=== PATIENT | female | born 2000 | race Caucasian/White ===

== ENCOUNTER → 2023-06-25 13:41 | Outpatient (REF) | payer BC, SELFPAY ==
[2023-06-25 14:57] LABS: % Basophils 0.6 % (0-2); % Eosinophils 1.5 % (0-6); % Immature Granulocytes 0.3 % (0-0.5); % Lymphocytes 41.3 % (20.5-51.1); % Monocytes 6.2 % (1.7-9.3); % Neutrophils 50.1 % (42.2-75.2); Absolute Eosinophils 0.1 10^3/uL (0-0.7); Absolute Lymphocytes 2.7 10^3/uL (1.2-3.4); Absolute Monocytes 0.4 10^3/uL (0.1-0.6); Absolute Neutrophils 3.2 10^3/uL (1.4-6.5); Hematocrit 39.2 % (37.0-47.0); Hemoglobin 13.8 g/dL (12.0-16.0); Mean Corp Hgb Conc. 35.2 g/dL (33.0-37.0); Mean Corpuscular Hgb 29.5 pg (27.0-31.0); Mean Corpuscular Volume 83.8 fL (81.0-99.0); Nucleated Red Blood Cells % 0 %; Platelet Count 426 10^3/uL (130-400); Red Blood Cell Count 4.68 10^6/uL (4.20-5.40); Red Cell Dist. Width 14.3 % (11.5-14.5); White Blood Cell Count 6.5 10^3/uL (4.8-10.8)
[2023-06-25 15:09] LABS: ALT (SGPT) 14 U/L (0-35); AST (SGOT) 27 U/L (14-36); Albumin 4.4 g/dl (3.5-5.0); Alkaline Phosphatase 49 U/L (38-126); Total Bilirubin 0.7 mg/dl (0.2-1.3); Total Protein 8.1 g/dl (6.3-8.2)
== END ==
LOC: REG 13:41
PROVIDERS: ATTENDING PHYSICIAN Internal Medicine Gastroenterology; FAMILY PHYSICIAN Internal Medicine
DX: K50.018 Crohn's disease of small intestine with other complication (principal)
CPT/HCPCS: 36415; 80076; 85025

== ENCOUNTER → 2023-06-29 16:04 | Outpatient (REF) | payer BC, SELFPAY ==
[2023-07-02 18:05] LABS: Calprotectin, Fecal 199 ug/g (<=49)
== END ==
LOC: REG 16:04
PROVIDERS: ATTENDING PHYSICIAN Physician Assistant
DX: K50.018 Crohn's disease of small intestine with other complication (principal)
CPT/HCPCS: 83993

== ENCOUNTER → 2023-10-06 11:16 | Outpatient (REF) | payer BC, SELFPAY | LOC: MRI 3T 11:16 | PROVIDERS: ATTENDING PHYSICIAN Internal Medicine Gastroenterology; FAMILY PHYSICIAN Internal Medicine | DX: K50.018 Crohn's disease of small intestine with other complication (principal) | CPT/HCPCS: 72197; 74183; A9575 ==

== ENCOUNTER → 2023-11-09 06:42 | Day surgery (SDC) | payer BC, SELFPAY | LOC: GI 06:42 | PROVIDERS: ATTENDING PHYSICIAN Internal Medicine Gastroenterology | DX: K50.00 Crohn's disease of small intestine without complications (principal); K64.9 Unspecified hemorrhoids | CPT/HCPCS: 45380; 88305 ==

== ENCOUNTER → 2024-05-23 08:22 | Outpatient (REF) | payer BC, SELFPAY ==
[2024-05-23 09:16] LABS: Hematocrit 36.3 % (37.0-47.0); Hemoglobin 12.7 g/dL (12.0-16.0); Mean Corpuscular Hgb 31.6 pg (27.0-31.0); Mean Corpuscular Volume 90.3 fL (81.0-99.0); Mean Platelet Volume 9.2 fL (7.4-10.4); Platelet Count 286 10^3/uL (130-400); Red Blood Cell Count 4.02 10^6/uL (4.20-5.40); Red Cell Dist. Width 12.2 % (11.5-14.5); White Blood Cell Count 5.6 10^3/uL (4.8-10.8)
[2024-05-23 09:56] LABS: ALT (SGPT) 13 U/L (0-35); AST (SGOT) 20 U/L (14-36); Albumin 4.2 g/dl (3.5-5.0); Alkaline Phosphatase 49 U/L (38-126); Blood Urea Nitrogen 12 mg/dl (7-17); Calcium 8.9 mg/dl (8.4-10.2); Carbon Dioxide 23 mmol/L (22-30); Chloride 106 mmol/L (98-107); Glucose 96 mg/dl (70-99); Iron 54 ug/dl (37-170); Potassium 4.5 mmol/L (3.5-5.1); Sodium 138 mmol/L (135-145); Total Bilirubin 0.2 mg/dl (0.2-1.3); Total Protein 6.8 g/dl (6.3-8.2); eGFR > 60.00
[2024-05-23 10:05] LABS: Percent Saturation 19 % (20-50); Total Iron Binding Capacity 271 ug/dl (265-497)
[2024-05-23 10:29] LABS: Ferritin 12.4 ng/ml (6.24-137)
[2024-05-23 11:00] LABS: Folate 2.6 ng/ml (2.76-20); Vitamin B12 375 pg/ml (239-931)
[2024-05-23 19:40] LABS: Hepatitis B Surface Antigen Negative (Negative)
[2024-05-23 19:58] LABS: Hepatitis B Core Ab, Total Negative (Negative); Hepatitis B Surface Antibody Negative
[2024-05-25 08:07] LABS: Quantiferon Mitogen minus NIL 9.93 IU/mL; Quantiferon NIL 0.07 IU/mL; Quantiferon Plus TB1 minus NIL 0.02 IU/mL (<=0.34); Quantiferon TB Gold Plus Negative (Negative)
== END ==
LOC: REG 08:22
PROVIDERS: ATTENDING PHYSICIAN Internal Medicine Gastroenterology; FAMILY PHYSICIAN Internal Medicine
DX: K50.018 Crohn's disease of small intestine with other complication (principal)
CPT/HCPCS: 36415; 80053; 82607; 82728; 82746; 83540; 83550; 85027; 86480; 86704; 86706; 87340

== ENCOUNTER → 2024-10-11 14:47 | Outpatient (REF) | payer BC, SELFPAY ==
[2024-10-11 17:18] LABS: Vitamin B12 795 pg/ml (239-931)
[2024-10-11 19:12] LABS: Folate > 20.0 ng/ml (2.76-20)
== END ==
LOC: REG 14:47
PROVIDERS: ATTENDING PHYSICIAN Internal Medicine Gastroenterology; FAMILY PHYSICIAN Internal Medicine
DX: K50.018 Crohn's disease of small intestine with other complication (principal)
CPT/HCPCS: 36415; 82607; 82746